=== PATIENT | female | born 1970 | race Caucasian/White ===

== ENCOUNTER 2020-01-21 14:42 | Observation (INO) ==
[2020-01-21 15:21] LABS: Basophils # 0.1 K/mcL (0.0-0.2); Basophils % 0.5 %; Eosinophils # 0.3 K/mcL (0.0-0.6); Immature Granulocytes % 0.3 % (0-4); Lymphocytes # 2.9 K/mcL (0.6-4.6); Mean Corpuscular HGB Conc 34.1 g/dL (31.6-35.5); Mean Corpuscular Volume 90.9 fL (83.0-100.0); Mean Platelet Volume 8.7 fL (9.4-12.4); Monocytes # 0.7 K/mcL (0.0-1.3); Neutrophils # 5.6 K/mcL (1.6-8.9); Platelet Count 352 K/mcL (140-400); Red Blood Count 4.51 M/mcL (3.82-4.97); Red Cell Distribution Width 13.3 % (11.5-14.5); Segmented Neutrophils % 59.2 %; White Blood Count 9.5 K/mcL (4.3-11.1)
[2020-01-21 15:26] LABS: Prothrombin Time 10.8 Seconds (9.4-12.1)
[2020-01-21 15:29] LABS: Activated Partial Thrombo Time 37.1 Seconds (26.0-36.0)
[2020-01-21 15:37] LABS: BUN/Creatinine Ratio 38 (6-26); Blood Urea Nitrogen 25 mg/dL (6-20); Calcium 9.8 mg/dL (8.6-10.3); Carbon Dioxide 26 mEq/L (23-29); Chloride 103 mEq/L (98-107); Glucose 108 mg/dL (70-105); Osmolality,Calculated 291 (280-300); Potassium 3.7 mEq/L (3.5-5.1); Sodium 138 mEq/L (136-145); Troponin I 0.03 ng/mL (< 0.04); eGFR For African Americans > 60 (> 60); eGFR For Non-African Americans > 60 (> 60)
[2020-01-21 18:51] LABS: Adenovirus Not Detected (Not Detect); Bordetella Pertussis Not Detected (Not Detect); Chlamydophila pneumoniae Not Detected (Not Detect); Coronavirus 229E Not Detected (Not Detect); Coronavirus HKU1 Not Detected (Not Detect); Coronavirus NL63 Not Detected (Not Detect); Coronavirus OC43 Not Detected (Not Detect); Human Metapneumovirus Not Detected (Not Detect); Human Rhinovirus/Enterovirus Not Detected (Not Detect); Influenza A Subtype 2009 H1 Not Detected (Not Detect); Influenza B Not Detected (Not Detect); Mycoplasma pneumoniae Not Detected (Not Detect); Parainfluenza Virus 1 Not Detected (Not Detect); Parainfluenza Virus 2 Not Detected (Not Detect); Parainfluenza Virus 3 Not Detected (Not Detect); Parainfluenza Virus 4 Not Detected (Not Detect); Respiratory Syncytial Virus Not Detected (Not Detect)
[2020-01-21] MEDS ORDERED: Mag Hydrox/Al Hydrox/Simeth 30 ML UDC PO PRN (19:39)
[2020-01-21] MEDS ORDERED: Naloxone 0.4 MG/ML INJ IVP PRN (19:39)
[2020-01-21] MEDS ORDERED: Ondansetron 4 MG/2 ML VIAL IVP PRN (19:39)
[2020-01-21] MEDS ORDERED: *HR* Promethazine 25 MG/ML VIAL IVP PRN (19:39)
[2020-01-21] MEDS ORDERED: Ondansetron ODT 4 MG TAB.RAPDIS SL PRN (19:39)
[2020-01-21] MEDS ORDERED: MOM Conc 10 ML UD.LIQ PO PRN (19:39)
[2020-01-21] MEDS ORDERED: 0.9 % Sodium Chloride 1,000 ML IVC SCH (19:45)
[2020-01-21] MEDS ORDERED: Nitroglycerin 0.4 MG TAB.SUBL SL PRN (19:45)
[2020-01-21] MEDS ORDERED: DICLOFENAC SODIUM 4 GM TP PRN (19:53)
[2020-01-21] MEDS ORDERED: Melatonin 3 MG TABLET PO SCH (21:00)
[2020-01-21] MEDS ORDERED: QUEtiapine Fumarate 25 MG TABLET PO SCH (21:00)
[2020-01-21] MEDS: Gabapentin 400 MG CAPSULE PO SCH (23:29)
[2020-01-21] MEDS: Topiramate 25 MG TABLET PO SCH (23:30)
[2020-01-21] MEDS: (Azelastine Hcl 1 DROP) OP SCH (23:30)
[2020-01-21] MEDS: Nicotine 14 MG PATCH.TD24 TD SCH (23:31)
[2020-01-21] MEDS: Ibuprofen 400 MG TABLET PO SCH (23:32)
[2020-01-21] MEDS: cloNIDine HCL 0.1 MG TABLET PO SCH (23:33)
[2020-01-22] MEDS: *HR* HYDROcodone/Acet 7.5/325 mg TABLET PO PRN ×2 (00:50→08:07)
[2020-01-22] MEDS ORDERED: *HR* Enoxaparin 40 MG/0.4 ML SYRINGE SQ SCH ×2 (06:00→19:58)
[2020-01-22 06:14] LABS: Hematocrit 38.7 % (35.3-44.9); Hemoglobin 13.1 g/dL (11.5-15.4); Mean Corpuscular HGB Conc 33.9 g/dL (31.6-35.5); Mean Corpuscular Hemoglobin 30.8 pg (28.0-33.3); Mean Corpuscular Volume 90.8 fL (83.0-100.0); Platelet Count 337 K/mcL (140-400); Red Blood Count 4.26 M/mcL (3.82-4.97); Red Cell Distribution Width 13.2 % (11.5-14.5); White Blood Count 10.3 K/mcL (4.3-11.1)
[2020-01-22 06:28] LABS: Troponin I < 0.03 ng/mL (< 0.04)
[2020-01-22 06:30] LABS: Alanine Aminotransferase 11 Units/L (7-52); Albumin 4.1 g/dL (3.5-5.7); Albumin/Globulin Ratio 1.3 (1.1-2.2); Alkaline Phosphatase 88 Units/L (34-104); Aspartate Amino Transferase 11 Units/L (13-39); BUN/Creatinine Ratio 39 (6-26); Bilirubin,Total 0.2 mg/dL (0.3-1.0); Blood Urea Nitrogen 26 mg/dL (6-20); Calcium 9.5 mg/dL (8.6-10.3); Carbon Dioxide 24 mEq/L (23-29); Chloride 107 mEq/L (98-107); Globulin 3.1 g/dL (2.4-3.5); Glucose 128 mg/dL (70-105); Magnesium 1.9 mg/dL (1.6-2.6); Osmolality,Calculated 294 (280-300); Potassium 3.9 mEq/L (3.5-5.1); Sodium 139 mEq/L (136-145); Total Protein 7.2 g/dL (6.4-8.9); eGFR For African Americans > 60 (> 60); eGFR For Non-African Americans > 60 (> 60)
[2020-01-22] MEDS ORDERED: Furosemide 20 MG TABLET PO SCH (08:00)
[2020-01-22] MEDS: Gabapentin 400 MG CAPSULE PO SCH (08:04)
[2020-01-22] MEDS: cloNIDine HCL 0.1 MG TABLET PO SCH (08:07)
[2020-01-22] MEDS: Topiramate 25 MG TABLET PO SCH (08:07)
[2020-01-22] MEDS: Ibuprofen 400 MG TABLET PO SCH (08:08)
[2020-01-22] MEDS: Nicotine 14 MG PATCH.TD24 TD SCH (08:16)
[2020-01-22] MEDS: (Azelastine Hcl 1 DROP) OP SCH (08:16)
[2020-01-22] MEDS ORDERED: polyethylene glycoL 3350 17 GM POWD.PACK PO SCH (09:00)
[2020-01-22] MEDS ORDERED: Fluticasone Propionate Nasal 50 MCG/SPRAY BOTTLE NS SCH (09:00)
[2020-01-22 12:23] VITALS: BP 121/75
== END 2020-01-22 15:10 ==
LOC: INPGRE 14:42 → EMEROOGRE 14:42 → INPGRE 19:31
PROVIDERS: ADMIT Internal Medicine; ATTEND Internal Medicine